=== PATIENT | female | born 1990 | race Two or more races ===

== ENCOUNTER 2017-07-15 17:29 | Emergency (ER) | payer MEDICAID ==
[2017-07-15 17:35] VITALS: RESP 16; TEMP 98.4
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
[2017-07-15] MEDS ORDERED: CHLORDIAZEPOXIDE 25MG PREPK#6 BTL TAKEHOME ONE (18:02)
[2017-07-15 18:11] VITALS: BP 106/56; PULSE 60; O2SAT 98
== END 2017-07-15 18:10 | disposition home or self-care (01) ==
DX: F11.23 Opioid dependence with withdrawal (principal); F15.90 Other stimulant use, unspecified, uncomplicated; J45.909 Unspecified asthma, uncomplicated; F17.200 Nicotine dependence, unspecified, uncomplicated

== ENCOUNTER 2018-01-18 18:19 | Observation (INO) | payer MEDICAID, OTHER ==
[2018-01-18] MEDS ORDERED: NS 1,000 ML IV ONE (18:34)
[2018-01-18] MEDS ORDERED: ONDANSETRON 4 MG/2 ML VIAL IVP ONE (18:34)
--- NOTE | 2018-01-18 18:36 | EDPHY ---
H & P Source: Monitoring Analyst - Medical/Surgical History Hx Asthma: Yes Hx Chronic Respiratory Disease: No Hx Diabetes: No Hx Cardiac Disease: No Hx Renal Disease: No Hx Cirrhosis: No Hx Alcoholism: No Hx HIV/AIDS: No Other PMH: recent TBI possible brain bleed ([facility] pt) - Social History Smoking Status: Current every day smoker Time Seen by Provider: 01/18/18 18:30 HPI/ROS: CHIEF COMPLAINT: Abdominal pain x3 days HISTORY OF PRESENT ILLNESS: 27-year-old female history of gastric bypass surgery 1 year ago, arrives from assisted complaining of diffuse abdominal pain, nausea, vomiting for the past 3 days. Bowel movements normal. No fever or chills. No urinary abnormality. No trauma. No fever or chills. No flu-like symptoms. Last oral intake 5:00 p.m. Consisting of applesauce REVIEW OF SYSTEMS: A ten point review of systems was performed and is negative with the exception of the items mentioned in the HPI PAST MEDICAL & SURGICAL HISTORY: Gastric bypass 1 year ago [facility] Dr. Cruz SOCIAL HISTORY: Currently residing at assisted PHYSICAL EXAM (Prior to examination, patient consented to physical exam, hands were washed and my usual and customary physical exam procedures followed) 1) GENERAL: Alert and oriented. Appears uncomfortable. 2) HEAD: Normocephalic, atraumatic 3) HEENT: Pupils equal, round, reactive to light bilaterally. Sclera anicteric. Nasopharynx, oropharynx, clear, no lesions. Dry mucous membranes. 4) NECK: Full range of motion, no meningeal signs. 5) LUNGS: Clear auscultation bilaterally, no wheezes, no rhonchi, no retractions. 6) HEART: Regular rate and rhythm, no murmur, no heave, no gallop. 7) ABDOMEN: Tender to palpation all quadrants 8) MUSCULOSKELETAL: Moving all extremities, no focal areas of tenderness, no obvious trauma. No peripheral edema or discoloration. 9) BACK: No CVA tenderness, no midline vertebral tenderness, no fluctuance, no step-off, no obvious trauma, no visual or palpable abnormality. 10) SKIN: No rash, no petechiae. 11) Psychiatric: Patient is oriented X 3, there is no agitation. DIFFERENTIAL DIAGNOSIS: My differential diagnosis includes, but is not limited to, acute appendicitis, , bowel obstruction, acute cholecystitis, bowel obstruction, acute pancreatitis, ovarian torsion, ectopic , gastritis and urinary tract infection. The patient understands that this diagnosis is provisional and can never be 100% accurate. This is a partial list of diagnoses considered. These considerations are based on history, physical exam, past history and reassessment. (Dusty Bell) Constitutional: Initial Vital Signs Heart Rate 93 01/18/18 19:04 Respiratory Rate 18 01/18/18 19:04 Blood Pressure 109/70 01/18/18 19:04 O2 Sat (%) 97 01/18/18 19:04 O2 Delivery Mode Room Air O2 (L/minute) 2 Allergies/Adverse Reactions: No Known Allergies Allergy (Unverified 01/18/18 19:07) Home Medications: Medication Instructions Recorded Advair Hfa 115-21 Mcg Inhaler 03/17/16 LORazepam 03/17/16 [place] 5/325 (*) 03/17/16 Sertraline HCl 03/17/16 Medical Decision Making - Diagnostics Imaging Results: Imaging Impressions Abdomen CT 01/18/18 19:17 Impression: 1. Advanced features of acute appendicitis, including marked periappendiceal inflammatory changes, without discrete fluid collection. Given the degree of inflammatory involvement of the adjacent fat, microperforation is not excluded. Results called to Teofilo Bell PA-C, at 7:45 PM. ED Course/Re-evaluation: 6:35 p.m.: Complaining of diffuse nonspecific abdominal pain. Will obtain laboratory studies and imaging studies. I saw this patient independently based on established practice protocols. Care of patient under supervision of primary supervising physician Dr Aggarwal with whom I discussed case. 7:45 p.m.: CT abdomen pelvis positive for appendicitis per staff Radiology interpretation 7:50 p.m.: Consultation Dr. Kai Diggs who evaluated patient in the ER. He recommends ertapenam be administered. (Dusty Bell) Other Provider: PHYSICIAN DOCUMENTATION: The patient was evaluated and managed by the Physician Long Distance Billing Operator. My co- signature indicates that I have reviewed this chart and I agree with the findings and plan of care as documented. I am the secondary supervising physician. (Beni Aggarwal) - Data Points Laboratory Results: Laboratory Results 01/18/18 18:28 01/18/18 18:28 01/18/18 01/18/18 01/18/18 19:40 18:28 18:28 WBC RBC Hgb Hct MCV MCH MCHC RDW Plt Count MPV Neut % (Auto) Lymph % (Auto) [place] % (Auto) Eos % (Auto) Baso % (Auto) Nucleat RBC Rel Count Absolute Neuts (auto) Absolute Lymphs (auto) Absolute Monos (auto) Absolute Eos (auto) Absolute Basos (auto) Absolute Nucleated RBC Immature Gran % Immature Gran # RBC/WBC/PLT Morphology Platelet Estimate Sodium 136 mEq/L mEq/L (135-145) Potassium 4.3 mEq/L mEq/L (3.3-5.0) Chloride 102 mEq/L mEq/L (97-110) Carbon Dioxide 25 mEq/l mEq/l (22-31) Anion Gap 9 mEq/L mEq/L (8-16) BUN 12 mg/dL mg/dL (7-23) Creatinine 0.8 mg/dL mg/dL (0.6-1.0) Estimated GFR > 60 Glucose 115 mg/dL H mg/dL (70-100) Calcium 9.2 mg/dL mg/dL (8.5-10.4) Total Bilirubin 0.7 mg/dL mg/dL (0.1-1.4) Conjugated Bilirubin 0.1 mg/dL mg/dL (0.0-0.5) Unconjugated Bilirubin 0.6 mg/dL mg/dL (0.0-1.1) AST 21 IU/L IU/L (14-46) ALT 29 IU/L IU/L (9-52) Alkaline Phosphatase 87 IU/L IU/L (38-126) Total Protein 7.2 g/dL g/dL (6.3-8.2) Albumin 4.3 g/dL g/dL (3.5-5.0) Lipase 36 IU/L IU/L (23-300) Beta HCG, Qual NEGATIVE Urine Color YELLOW Urine Appearance CLEAR Urine pH 7.0 (5.0-7.5) Ur Specific [place] 1.027 (1.002-1.030) Urine Protein NEGATIVE (NEGATIVE) Urine Ketones NEGATIVE (NEGATIVE) Urine Blood 2+ H (NEGATIVE) Urine Nitrate NEGATIVE (NEGATIVE) Urine Bilirubin NEGATIVE (NEGATIVE) Urine Urobilinogen NEGATIVE EU EU (0.2-1.0) Ur Leukocyte Esterase NEGATIVE (NEGATIVE) Urine RBC NONE SEEN /hpf /hpf (0-3) Urine WBC 3-5 /hpf H /hpf (0-3) Ur Epithelial Cells TRACE /lpf /lpf (NONE-1+) Urine Bacteria TRACE /hpf H /hpf (NONE SEEN) Urine Mucus TRACE /lpf /lpf (NONE-1+) Urine Glucose NEGATIVE (NEGATIVE) 01/18/18 18:28 WBC 15.87 10^3/uL H 10^3/uL (3.80-9.50) RBC 4.54 10^6/uL 10^6/uL (4.18-5.33) Hgb 14.2 g/dL g/dL (12.6-16.3) Hct 41.4 % % (38.0-47.0) MCV 91.2 fL fL (81.5-99.8) MCH 31.3 pg pg (27.9-34.1) MCHC 34.3 g/dL g/dL (32.4-36.7) RDW 13.1 % % (11.5-15.2) Plt Count 224 10^3/uL 10^3/uL (150-400) MPV 10.7 fL fL (8.7-11.7) Neut % (Auto) 81.8 % H % (39.3-74.2) Lymph % (Auto) 7.8 % L % (15.0-45.0) [place] % (Auto) 9.6 % % (4.5-13.0) Eos % (Auto) 0.3 % L % (0.6-7.6) Baso % (Auto) 0.1 % L % (0.3-1.7) Nucleat RBC Rel Count 0.0 % % (0.0-0.2) Absolute Neuts (auto) 12.98 10^3/uL H 10^3/uL (1.70-6.50) Absolute Lymphs (auto) 1.24 10^3/uL 10^3/uL (1.00-3.00) Absolute Monos (auto) 1.52 10^3/uL H 10^3/uL (0.30-0.80) Absolute Eos (auto) 0.05 10^3/uL 10^3/uL (0.03-0.40) Absolute Basos (auto) 0.02 10^3/uL 10^3/uL (0.02-0.10) Absolute Nucleated RBC 0.00 10^3/uL 10^3/uL (0-0.01) Immature Gran % 0.4 % % (0.0-1.1) Immature Gran # 0.06 10^3/uL 10^3/uL (0.00-0.10) RBC/WBC/PLT Morphology TNP Platelet Estimate TNP Sodium Potassium Chloride Carbon Dioxide Anion Gap BUN Creatinine Estimated GFR Glucose Calcium Total Bilirubin Conjugated Bilirubin Unconjugated Bilirubin AST ALT Alkaline Phosphatase Total Protein Albumin Lipase Beta HCG, Qual Urine Color Urine Appearance Urine pH Ur Specific [place] Urine Protein Urine Ketones Urine Blood Urine Nitrate Urine Bilirubin Urine Urobilinogen Ur Leukocyte Esterase Urine RBC Urine WBC Ur Epithelial Cells Urine Bacteria Urine Mucus Urine Glucose Medications Given: Ertapenem 1 gm/ Sodium (Chloride) 100 mls @ 200 mls/hr IV EDNOW ONE PRN Reason: Protocol Stop: 01/18/18 20:22 Last Admin: 01/18/18 20:14 Dose: 100 mls Discontinued Medications Hydromorphone HCl (Dilaudid) 1 mg IVP EDNOW ONE Stop: 01/18/18 19:44 Last Admin: 01/18/18 19:50 Dose: 1 mg Sodium Chloride (Ns) 1,000 mls @ 0 mls/hr IV ONCE ONE PRN Reason: Wide Open Stop: 01/18/18 18:35 Last Admin: 01/18/18 18:47 Dose: 1,000 mls Morphine Sulfate (Morphine) 4 mg IVP EDNOW ONE Stop: 01/18/18 18:35 Last Admin: 01/18/18 18:47 Dose: 4 mg Ondansetron HCl (Zofran) 4 mg IVP EDNOW ONE Stop: 01/18/18 18:35 Last Admin: 01/18/18 18:48 Dose: 4 mg Departure - Departure Condition: Fair
[2018-01-18 18:50] LABS: PLATELET COUNT 224 10^3/uL (150-400)
[2018-01-18] MEDS ORDERED: IOPAMIDOL (ISOVUE-300) 100 ML BTL ONE (19:19)
[2018-01-18] MEDS ORDERED: HYDROmorphONE/DILAUDID 1 MG/ML INJ IVP ONE (19:43)
[2018-01-18] MEDS ORDERED: ERTAPENEM 1 GM in NS 100 ML IV ONE (19:53)
[2018-01-18] MEDS ORDERED: LR 1,000 ML IV ONE (20:33)
[2018-01-18] MEDS ORDERED: HYDROmorphONE/DILAUDID 1 MG/ML INJ IVP PRN ×2 (20:36→21:34)
[2018-01-18] MEDS ORDERED: ONDANSETRON 4 MG/2 ML VIAL IVP PRN ×2 (20:36→21:34)
[2018-01-18] MEDS ORDERED: HEPARIN 5,000 UNIT/0.5 ML INJ ONE (20:39)
[2018-01-18] MEDS ORDERED: ceFAZolin 1 GM/5 ML SYR ONE (20:39)
[2018-01-18] MEDS ORDERED: ACETAMINOPHEN 500 MG TAB PO SCH (20:45)
[2018-01-18] MEDS ORDERED: ALBUTEROL 60 PUFFS/8 GM MDI IH SCH (20:45)
[2018-01-18] MEDS ORDERED: MIDAZOLAM 2 MG/2 ML VIAL ONE (20:57)
[2018-01-18] MEDS ORDERED: buPROPion SR 150 MG TAB PO SCH (21:00)
[2018-01-18] MEDS ORDERED: LR 1,000 ML IV SCH (21:00)
[2018-01-18] MEDS ORDERED: MIDAZOLAM 2 MG/2 ML VIAL IVP ONE (21:03)
--- NOTE | 2018-01-18 21:03 | PDANEPAE ---
ANE History of Present Illness Laparoscopic Appendectomy ANE Past Medical History - Pulmonary History Hx Asthma/Reactive Airway Disease: Yes Hx Oxygen in Use at Home: No Hx Sleep Apnea: No - Endocrine History Hx Diabetes: No - GI History GERD: mild (controlled) ANE Review of Systems Review of systems is: negative Review of Systems: - Exercise capacity Exercise capacity: >=4 METS ANE Patient History - Allergies Allergies/Adverse Reactions: No Known Allergies Allergy (Unverified 01/18/18 19:07) - Home Medications Home medications: home medication list seen and reviewed Home Medications: Fluticasone/Salmeterol 1 puffs IH BID 03/17/16 [Last Taken 01/18/18 09:00] Sertraline HCl [Zoloft 100mg (*)] 100 mg PO HS 03/17/16 [Last Taken 01/17/18] ARIPiprazole [Abilify 10 mg (*)] 10 mg PO DAILY 01/18/18 [Last Taken 01/18/18] Albuterol [Proventil Inhaler HFA (*)] 1 - 2 puffs IH Q4H 01/18/18 [Last Taken Unknown] Cholecalciferol Vit D3 [Vitamin D3 (*)] 2,000 units PO DAILY 01/18/18 [Last Taken 01/18/18] Gabapentin [Neurontin 300 MG (*)] 900 mg PO TID 01/18/18 [Last Taken 01/18/18 12 :00] Herbals/Supplements -Info Only 1 ea PO DAILY 01/18/18 [Last Taken 01/18/18] Magnesium Oxide [Magnesium Oxide 400 mg (*)] 400 mg PO DAILY 01/18/18 [Last Taken 01/18/18] [place]-3 Fatty Acids [Fish Oil 1000 mg (*)] 1,000 mg PO DAILY 01/18/18 [Last Taken 01/18/18] Trihexyphenidyl 5 mg PO DAILY 01/18/18 [Last Taken 01/18/18] buPROPion SR [Wellbutrin 150mg SR (*)] 150 mg PO BID 01/18/18 [Last Taken 09:00] - NPO status NPO Since - Liquids (Date): 01/18/18 NPO Since - Liquids (Time): 17:00 NPO Since - Solids (Date): 01/18/18 NPO Since - Solids (Time): 17:00 - Anes Hx Anes Hx: no prior problems - Smoking Hx Smoking Status: Current every day smoker - Family Anes Hx Family Anes Hx: none ANE Labs/Vital Signs - Labs Result Diagrams: 01/18/18 18:28 01/18/18 18:28 - Vital Signs Vital Signs: reviewed preoperatively; see RN documention for details Blood Pressure: 88/56 Heart Rate: 76 Respiratory Rate: 97 O2 Sat (%): 2 Height: 157.48 cm Weight: 97.522 kg ANE Physical Exam - Airway Neck exam: FROM Mallampati Score: Class 3 Mouth exam: normal dental/mouth exam - Pulmonary Pulmonary: no respiratory distress - Cardiovascular Cardiovascular: regular rate and rhythym - ASA Status ASA Status: II, E
[2018-01-18] MEDS ORDERED: PROPOFOL 200 MG/20 ML VIAL ONE (21:06)
[2018-01-18] MEDS ORDERED: LIDOCAINE 2% 100 MG/5 ML SYR ONE (21:06)
[2018-01-18] MEDS ORDERED: ROCURONIUM 50 MG/5 ML VIAL ONE (21:06)
[2018-01-18] MEDS ORDERED: SUGAMMADEX SODIUM 200 MG/2 ML VIAL IVP ONE (21:06)
[2018-01-18] MEDS ORDERED: DEXAMETHASONE 4 MG/ML VIAL ONE (21:06)
[2018-01-18] MEDS ORDERED: ONDANSETRON 4 MG/2 ML VIAL ONE (21:06)
[2018-01-18] MEDS ORDERED: fentaNYL 250 MCG/5 ML INJ ONE (21:06)
--- NOTE | 2018-01-18 21:08 | GHP ---
[f rep st] HISTORY AND PHYSICAL DATE OF ADMISSION: 01/18/2018 ADMITTING DIAGNOSIS: Acute appendicitis by CT. HISTORY: The patient is a 27-year-old inmate of [facility]. Her incarceration started on 2016. She was feeling well last Tuesday. On Tuesday morning as she was walking downstai rs, she noticed an abdominal cramp. It became worse. She was hungry, she ate breakfast and then cristal t back upstairs and vomited. Since that time, her appetite and appetite been markedly diminished. S he still has been moving her bowels daily. Pain was worse this morning. Last night she had a temper ature to 101. Today, she had a temperature to 102. She is not hungry at this point and that prompte d the visit to the emergency room. There is no history of upper respiratory tract infection or diarr hea in the last 2 weeks. She has not had any travel outside the [place] or antibiotics in the last 6 months. There is no history of inflammatory bowel disease. No history of prior similar pain pattern. She has had a proximal gastric bypass by history from obesity. She also had a sec tion. SOCIAL HISTORY: She has smoked from ages 18 to 26 at half-pack a day. She does not drink. ALLERGIES: She has no known drug allergies. MEDICATIONS: Include albuterol inhaler 1 to 2 puffs every 4 hours. She takes Abilify 10 mg daily. She takes Wellbutrin SR 150 mg twice a day. She takes cholecalciferol vitamin D3 2000 units daily. She takes fluticasone salmeterol 1 puff twice a day. She takes Neurontin 900 mg 3 times a day. She uses an herbal supplement. She takes magnesium oxide 400 mg daily. [place]-3 fatty acids 1000 mg verna y. She takes Zoloft 100 mg at bedtime, and trihexyphenidyl 5 mg daily. PAST SURGICAL HISTORY: Include the surgeries mentioned above. There is no history of rheumatic feve r, tuberculosis, hepatitis, or transfusions. REVIEW OF SYSTEMS: She has had asthma for 15 years. She also suffers from depression, anxiety and s chizophrenia. She has a crown on her right front upper central incisor. No limitations in her activ ities. No history of steroid use. PHYSICAL EXAMINATION: GENERAL: She is awake and alert. She is seen lying on the ER gurney in bed 3 . ABDOMEN: Abdominal examination shows hypoactive bowel sounds. Psoas and obturator signs are nega tive. She is tender with cough 3 fingerbreadths to the right of the umbilicus. Palpation is tender in all quadrants, but mainly in the right mid abdomen. GENERAL: She is awake, alert and oriented. NEURO: There are no focal lateralizing neurologic findings. BACK: Her back is unremarkable. LUNGS : Clear to auscultation. NECK: There are no carotid bruits identified. Thyroid is not enlarged. CARDIAC: Exam shows S1 and S2 to be. Normal split of S2. There is no cervical, supraclavicular, ax illary, or inguinal lymphadenopathy identified. White count is 15,800 with 82% neutrophils, hematocrit is 41, platelet count is 224,000. Beta hCG is negative. There are no other significant laboratory findings. CAT scan shows an indistinct appendix that has a hyperemic wall and slightly distended. There appear s to be some periappendiceal stranding. There is no free fluid in the pelvis. ASSESSMENT AND PLAN: I feel this patient probably does have acute appendicitis and deserves an explo ration. She agrees to proceed as outlined. /[id number]/MODL
[2018-01-18] MEDS ORDERED: fentaNYL 100 MCG/2 ML INJ IVP PRN (21:34)
[2018-01-18] MEDS ORDERED: MEPERIDINE 25 MG/0.5 ML AMP IVP PRN (21:34)
[2018-01-18] MEDS ORDERED: NALOXONE HCL 0.4 MG/ML INJ IVP PRN (21:34)
[2018-01-18] MEDS ORDERED: ALBUTEROL 3 ML DEYVIAL IH PRN (21:34)
[2018-01-18] MEDS ORDERED: ACETAMINOPHEN 500 MG TAB PO PRN (21:34)
[2018-01-18] MEDS ORDERED: DEXAMETHASONE 4 MG/ML VIAL IVP PRN (21:34)
[2018-01-18] MEDS ORDERED: PROMETHAZINE HCL 25 MG/ML INJ IVP PRN (21:34)
--- NOTE | 2018-01-18 21:36 | POSTANESTH ---
Post Anesthetic Evaluation Cardiovascular Status: Normal, Stable, Similar to Pre-Op Cond Respiratory Status: Similar to Pre-op Cond. Level of Consciousness/Mental Status: Can Participate in Eval, Mildly Sleepy, Arousable Pain Control: Adequate, Prn Tx Ordered Nausea/Vomiting Control: Adequate, Prn Tx Ordered Complications Possibly Related to Anesthesia: None Noted
[2018-01-18] MEDS ORDERED: KETOROLAC 30 MG/1 ML SDV ONE (22:11)
--- NOTE | 2018-01-18 23:02 | POSTOPPROG ---
Post Op Note Date of Operation: 01/18/18 Surgeon: Kai Diggs Anesthesia: GET(General Endotracheal) Pre-op Diagnosis: acute appendicitis Post-op Diagnosis: acute appendicitis Indication: acute appendicitis Procedure: laparoscopic appendectomy Findings: acute appendicitis Inf/Abcess present in the surg proc area at time of surgery?: No Total fluids administered: 1200cc Complications: none Specimen(s): appendix
[2018-01-19] MEDS: SERTRALINE HCL 100 MG TAB PO SCH ×2 (00:06→00:11)
[2018-01-19] MEDS: GABAPENTIN 300 MG CAP PO SCH ×3 (00:07→07:52)
--- NOTE | 2018-01-19 00:09 | GOP ---
[f rep st] OPERATIVE REPORT DATE OF OPERATION: 01/18/2018 SURGEON: Kai Diggs MD PREOPERATIVE DIAGNOSIS: Acute appendicitis. POSTOPERATIVE DIAGNOSIS: Acute appendicitis. PROCEDURE PERFORMED: Laparoscopic appendectomy. FINDINGS: Acute appendicitis. SPECIMENS: Appendix. INDICATIONS: Acute appendicitis. DESCRIPTION OF PROCEDURE: The patient was placed on the operating table in supine position. After induction of adequate general endotracheal anesthesia, the abdomen was carefully clipped, prepped, and draped. A surgical time-out was carried out and agreed to by all members of the operative team. A curvilinear incision was planned at the umbilicus. The skin was sharply incised and dissection was continued with blunt dissection and electrocautery to expose the anterior rectus sheath bilaterally. A midline incision was made. A pursestring of #0 PDS was placed in the fascia. The peritoneum was entered. An 11-12 mm disposable Yovany trocar was positioned. Intra-abdominal insufflation was carried out to 15 mmHg high flow. The appendix was known to be midline at the level of the umbilicus. Left lower and left upper quadrant oblique incisions were made. The 5 mm ports were placed in both cases. Examination of the pelvis revealed a green serous fluid. The appendix was walled off by the omentum and mesenteric fat. A plane was carefully developed around the appendix. It was cleared down to its junction with the cecum. The Harmonic Scalpel was used to expose the appendix at its base. The appendix was transected with a single application of a 35 mm powered Endo-MANUEL stapler. The specimen was retrieved in an EndoCatch bag via the umbilical port site. Pneumoperitoneum was re-established. Irrigation with heparin and Ancef- containing irrigant was carried out. The staple line was secure when completing. Hemostasis was excellent. The small bowel was run for a distance of 3 feet. There was no mesenteric adenitis identified. There was no Meckel diverticulum. The ports were removed under direct vision. Inverted simple suture of #0 PDS was placed in the midpoint of the fascial incision. It was tied. The pursestring was now tied. The subcutaneous tissue was checked. Hemostasis was excellent. At all 3 incisions, the skin was closed with inverted simple sutures of #4-0 Vicryl. Mastisol and Steri-Strips were placed. Band-Aids were positioned. The patient was transferred to recovery in stable and satisfactory condition. FLUIDS: 1200 cc. URINE OUTPUT: None. /[id number]/MODL MTDD
[2018-01-19] MEDS: ALBUTEROL 60 PUFFS/8 GM MDI IH SCH ×3 (00:10→09:25)
[2018-01-19] MEDS: KETOROLAC 30 MG/1 ML SDV IVP SCH ×2 (00:11→06:11)
[2018-01-19] MEDS: ACETAMINOPHEN 500 MG TAB PO SCH ×2 (00:12→07:54)
[2018-01-19] MEDS: [UNRECOGNIZED DRUG - OTHER] IH SCH ×2 (00:12→08:20)
[2018-01-19] MEDS: FLUTICASONE IH SCH ×2 (00:12→08:20)
[2018-01-19 07:26] VITALS: BP 99/58
[2018-01-19] MEDS ORDERED: buPROPion SR 150 MG TAB PO SCH (08:30)
[2018-01-19] MEDS ORDERED: MAGNESIUM OXIDE 400 MG TAB PO SCH (09:00)
[2018-01-19] MEDS ORDERED: TRIHEXYPHENIDYL HCL 5 MG TAB PO SCH (09:00)
[2018-01-19] MEDS ORDERED: ENOXAPARIN 40 MG/0.4 ML SYR SC SCH (09:00)
[2018-01-19] MEDS ORDERED: CHOLECALCIFEROL VIT D3 2,000 UNITS TAB/CAP PO SCH (09:00)
[2018-01-19] MEDS ORDERED: ARIPiprazole 10 MG TAB PO SCH (09:00)
[2018-01-19] MEDS ORDERED: OMEGA-3 FATTY ACIDS 1,000 MG CAP PO SCH (09:00)
[2018-01-19] MEDS ORDERED: PNEUMOCOCCAL 0.5ML VACCINE VIAL IM ONE (09:23)
[2018-01-19] MEDS ORDERED: oxyCODONE IR 5 MG TAB PO ONE ×2 (09:30)
--- NOTE | 2018-01-19 10:34 | SOAPPROG ---
SOAP Progress Note Assessment/Plan: Assessment: 27 y/o incarcerated F s/p lap appy POD #1 S: No complaints. Pain well controlled. Not passing gas or BMs yet. Tolerating clears. O: Alert Afebrile RRR No increased WOB Abdomen: soft, slightly distended, normoactive bowel sounds, incisions cdi Plan: Dispo back senior care today. Per officer at bedside, the senior care does not allow narcotics. Pt to get dose prior to discharge and ibuprofen at senior care. 01/19/18 10:32 Objective: Vital Signs Temp Pulse Resp BP Pulse Ox 36.7 C 62 14 99/58 L 92 01/19/18 07:25 01/19/18 07:25 01/19/18 07:25 01/19/18 07:25 01/19/18 07:25 01/18/18 01/19/18 01/20/18 05:59 05:59 05:59 Intake Total 6460 145 Output Total 150 Balance 6310 145 ICD10 Worksheet Patient Problems: Problems Problem Status Onset Appendicitis Acute - ICD10 Problem Qualifiers (1) Appendicitis
== END 2018-01-19 11:21 ==
LOC: EEVIPCON 19:52 → F3E 23:00
PROVIDERS: ADMIT Surgery; ATTEND Surgery
PROC: 0DTJ4ZZ Resection of Appendix, Percutaneous Endoscopic Approach (ICD-10-PCS; principal; 2018-01-18 21:00)
DX: K35.80 Unspecified acute appendicitis (principal); Z23 Encounter for immunization
CPT/HCPCS: 44970; 74177; 90471; 96361; 96365; 96372; 96375; 96376; 99285; G0378; G0009; J1100; J1170; J1335; J1644; J1650; J1885; J2001; J2250; J2270; J2405; J2704; J3010; Q9967